=== PATIENT | female | born 1945 | race Caucasian/White ===

== ENCOUNTER 2022-10-22 07:53 | Day surgery (SDC) | payer MEDICARE, OTHER, SELFPAY ==
[2022-10-17 11:04] VITALS: BMI 28.5
--- NOTE | 2022-10-19 08:03 | MHC.SHP ---
Pre-Procedural Eval Section A Date of Service: 10/19/22 The patient is an INPATIENT: No Changes since office visit: No Cold of Flu in the past 2 weeks, No New Medical Problems, No Changes in Medication and No Patient answered all questions The History & Physical has been completed within 30 days and I have reviewed it.: Yes Section B Chief Complaint: Age-related nuclear cataract, right eye Allergies: Allergies Allergy/AdvReac Type Severity Reaction Status Date / Time No Known Allergies Allergy Verified 10/17/22 11:07 [No Known Allergies*] Plan Diagnosis/Plan: Unchanged I have reviewed the history and physical and performed a pertinent physical examination on my patient. No changes have occurred unless specified. Time Spent With Patient Time: Total time managing care of this patient today ____ minutes.
--- NOTE | 2022-10-19 09:08 | P.CONAN_ITS ---
Documented by User: Birdie Bauman NP 10/19/22 09:09 HPI - Anesthesia Eval Consult details Narrative: 77yo F for Right Cataract Multifocal with IOL Insertion PCP cleared No previous cataract on record PMFSH Past Medical History Medical History Anxiety Depression HTN (hypertension) Hx of breast cancer Hx of skin cancer, basal cell Insomnia Osteopenia of lumbar spine Ventral hernia Surgical History Surgical History History of lumpectomy of right breast Hx of colonoscopy S/P Mohs surgery for basal cell carcinoma Social History Social History Are you a primary youth career specialist to a significant other at home: No Do you presently have visiting nurse or other home services: No Patient Tobacco Use Status: Never used Tobacco Use of substances other than those prescribed or required for medical reasons: No Have you been hit, kicked, punched, or otherwise hurt by someone within the past year? If so, by whom?: No Are you DNR?: No Advance Directives: No Advance Directives Information Provided: Yes Advance Directives on File: No Recently lost weight without trying: No Nutrition Risks: Surgical patient >75years Meds Allergies Allergy/AdvReac Type Severity Reaction Status Date / Time No Known Allergies Allergy Verified 10/17/22 11:07 [No Known Allergies*] Home Medications Medication Instructions Recorded Confirmed Last Taken Type calcium carbonate 500 mg calcium 500 mg PO DAILY 10/17/22 10/17/22 Unknown History (1,250 mg) tablet fluoxetine 10 mg capsule 10 mg PO DAILY 10/17/22 10/17/22 10/22/22 History lorazepam 0.5 mg tablet 0.5 mg PO Q8H PRN Anxiety 10/17/22 10/17/22 10/22/22 Hi story losartan 25 mg tablet 25 mg PO DAILY 10/17/22 10/17/22 Unknown History multivitamin 1 tab PO DAILY 10/17/22 10/17/22 Unknown History Exam Exam Date and Time: October 19, 2022 0908 Height,Weight and Vital Signs: Height 5 ft 5.5 in Weight 78.925 kg Assessment and Plan Assessment Anesthesia Assessment: Chart Reviewed Documented by User: Susie Cool MD 10/22/22 09:58 PMFSH Past Medical History Medical History Anxiety Depression HTN (hypertension) Hx of breast cancer Hx of skin cancer, basal cell Insomnia Osteopenia of lumbar spine Ventral hernia Family History Family history of problems with anesthesia: No Surgical History Surgical History History of lumpectomy of right breast Hx of colonoscopy S/P Mohs surgery for basal cell carcinoma History of Problems with Anesthesia: No Social History Social History Are you a primary youth career specialist to a significant other at home: No Do you presently have visiting nurse or other home services: No Patient Tobacco Use Status: Never used Tobacco Use of substances other than those prescribed or required for medical reasons: No Have you been hit, kicked, punched, or otherwise hurt by someone within the past year? If so, by whom?: No Are you DNR?: No Advance Directives: No Advance Directives Information Provided: Yes Advance Directives on File: No Recently lost weight without trying: No Nutrition Risks: Surgical patient >75years Meds Allergies Allergy/AdvReac Type Severity Reaction Status Date / Time No Known Allergies Allergy Verified 10/17/22 11:07 [No Known Allergies*] Home Medications Medication Instructions Recorded Confirmed Last Taken Type calcium carbonate 500 mg calcium 500 mg PO DAILY 10/17/22 10/17/22 Unknown History (1,250 mg) tablet fluoxetine 10 mg capsule 10 mg PO DAILY 10/17/22 10/17/22 10/22/22 History lorazepam 0.5 mg tablet 0.5 mg PO Q8H PRN Anxiety 10/17/22 10/17/22 10/22/22 History losartan 25 mg tablet 25 mg PO DAILY 10/17/22 10/17/22 Unknown History multivitamin 1 tab PO DAILY 10/17/22 10/17/22 Unknown History Exam Height,Weight and Vital Signs: Height 5 ft 5.5 in Weight 78.925 kg Vital Signs Temp Pulse Resp BP Pulse Ox O2 Del Method 10/22/22 08:46 97.7 F 81 18 172/84 H 97 Room Air Assessment and Plan Final Anesthetic Review Family History of Problems with Anesthesia: No History of Problems with Anesthesia: No Documented by User: Armani Tyson MD 10/22/22 10:59 PMFSH Past Medical History Medical History Anxiety Depression HTN (hypertension) Hx of breast cancer Hx of skin cancer, basal cell Insomnia Osteopenia of lumbar spine Ventral hernia Surgical History Surgical History History of lumpectomy of right breast Hx of colonoscopy S/P Mohs surgery for basal cell carcinoma Social History Social History Are you a primary youth career specialist to a significant other at home: No Do you presently have visiting nurse or other home services: No Patient Tobacco Use Status: Never used Tobacco Use of substances other than those prescribed or required for medical reasons: No Have you been hit, kicked, punched, or otherwise hurt by someone within the past year? If so, by whom?: No Are you DNR?: No Advance Directives: No Advance Directives Information Provided: Yes Advance Directives on File: No Recently lost weight without trying: No Nutrition Risks: Surgical patient >75years Meds Allergies Allergy/AdvReac Type Severity Reaction Status Date / Time No Known Allergies Allergy Verified 10/17/22 11:07 [No Known Allergies*] Home Medications Medication Instructions Recorded Confirmed Last Taken Type calcium carbonate 500 mg calcium 500 mg PO DAILY 10/17/22 10/17/22 Unknown History (1,250 mg) tablet fluoxetine 10 mg capsule 10 mg PO DAILY 10/17/22 10/17/22 10/22/22 History lorazepam 0.5 mg tablet 0.5 mg PO Q8H PRN Anxiety 10/17/22 10/17/22 10/22/22 History losartan 25 mg tablet 25 mg PO DAILY 10/17/22 10/17/22 Unknown History multivitamin 1 tab PO DAILY 10/17/22 10/17/22 Unknown History Exam Airway Mallampati Class: II TM Dist: >3cm Neck ROM: Full Loose/Missing/Broken Teeth: Yes Heart: [id number] Lungs: CTA b/l Assessment and Plan Assessment Anesthesia Assessment: Anesthesia Plan Discussed Final Anesthetic Review NPO: Yes ASA Class: II Final Preanesthetic Review: No Changes in Pt Med Stat, Meds/Allgs Chart Reviewed, Consent Obtained/Reviewed and Anes Risks/Benef Reviewed Patient Risk: Low Procedure Risk: Low Assessment/Block/Sedation in SS: Assess/Block/Sedation-SS Anesthetic Plan Anesthetic Plan: MAC: and Agree w/ Assess. and Plan Disposition: Standard PACU
[2022-10-22 08:46] VITALS: BP 172/84; PULSE 81; RESP 18; TEMP 36.5; O2SAT 97
[2022-10-22] MEDS: Lactated Ringers 500 ML 50 ML IV (09:10)
[2022-10-22] MEDS: Tetracaine HCl/PF 0.5% Oph Sol 4 ML DROPS 1 DROP EYE-RIGHT (09:10)
[2022-10-22] MEDS: Ketorolac Tromethamine 0.5% Op 5 ML DROPS 1 DROP EYE-RIGHT ×3 (09:11→09:18)
[2022-10-22] MEDS: Cyclopentolate 1 % Ophth Sol 2 ML DRPBTL 1 DROP EYE-RIGHT ×3 (09:11→09:17)
[2022-10-22] MEDS: Phenylephrine HCL 2.5% Oph SoL 2 ML BOTTLE 1 DROP EYE-RIGHT ×3 (09:11→09:18)
[2022-10-22] MEDS: Tropicamide 1 % Ophth Sol 3 ML BTL 1 DROP EYE-RIGHT ×3 (09:11→09:17)
--- NOTE | 2022-10-22 09:54 | P.PCNO_ITS ---
Ophthalmology Procedure Procedure Date of Service: 10/22/22 Ophthalmology Viscoelastic: Emelyn Wrightt Dual Pack Pro Ophthalmology Lenses: TECSOPHIE [id number] (19.5) Procedure Notes: PREOPERATIVE DIAGNOSIS: Decreased visual acuity right eye secondary to cataract POSTOPERATIVE DIAGNOSIS: Same PROCEDURE: Right cataract extraction with intraocular lens insertion SURGEON: Joe Kenny M.D. ANESTHESIA: Topical/MAC ESTIMATED BLOOD LOSS: None COMPLICATIONS: Capsular tear After obtaining informed consent, the patient was brought to the operating room suite and placed in the supine position. After adequate sedation per anesthesia, topical drops of Tetracaine were given to the right eye. The eye was then prepped and draped in the usual sterile fashion. The operating room microscope was then positioned over the operative eye and a lid speculum placed. A paracentesis was created. Viscoelastic was then instilled into the anterior chamber. A three plane incision was then created temporally, utilizing a 2.85 mm keratome. Capsulotomy forceps were then utilized to create a circular tear capsulotomy. Hydrodissection and hydrodelineation were carried out until adequate mobilization of the nucleus occurred. Phacoemulsification was then utilized to remove the dense central nuc leus followed by removal of the cortical material utilizing the automated aspiration irrigation unit. Viscoelastic was instilled into the posterior capsular bag followed by placement of a posterior chamber intraocular lens . The lens was not situating centrally. A capsular tear required the PCIOL to be positioned in the sulcus with Optic capture. The residual Viscoelastic was then removed utilizing the automated IA machine. The wound was checked and found to be watertight. The patient tolerated the procedure well and the lid speculum was removed. Intracameral injection of Vigamox 0.1 mL followed by a subtenon injection of Kenalog-40 0.2 mL were administered. The patient will be seen in the a.m.
[2022-10-22 10:20] VITALS: BP 165/78; PULSE 72; RESP 20; TEMP 36.3; O2SAT 98
== END 2022-10-22 10:33 | disposition home or self-care (01) ==
PROVIDERS: PCP Internal Medicine; Visit Provider Ophthalmology
PROC: (CPT 66985; principal; 2022-10-22 10:50)
DX: H25.11 Age-related nuclear cataract, right eye (principal); H59.211 Accidental puncture and laceration of right eye and adnexa during an ophthalmic procedure; Y65.8 Other specified misadventures during surgical and medical care; Y92.234 Operating room of hospital as the place of occurrence of the external cause; H52.4 Presbyopia; H35.033 Hypertensive retinopathy, bilateral; H18.413 Arcus senilis, bilateral; H11.153 Pinguecula, bilateral; I10 Essential (primary) hypertension; Z85.3 Personal history of malignant neoplasm of breast; Z85.828 Personal history of other malignant neoplasm of skin; F41.1 Generalized anxiety disorder; F32.A Depression, unspecified; Z79.899 Other long term (current) drug therapy
CPT/HCPCS: 66984; J2250; J3301; V2632

== ENCOUNTER 2022-11-05 07:34 | Day surgery (SDC) | payer MEDICARE, OTHER, SELFPAY ==
[2022-10-17 11:08] VITALS: BMI 28.5
--- NOTE | 2022-11-01 14:52 | HO.ANESPROP2 ---
Documented by User: Birdie Bauman NP 11/01/22 14:52 HPI - Anesthesia Eval Consult details Narrative: 77yo F for Left Cataract Multifocal with IOL Insertion PCP cleared Right eye 10/22/22 with MAC: midaz 1 PMFSH Past Medical History Medical History Anxiety Depression HTN (hypertension) Hx of breast cancer Hx of skin cancer, basal cell Insomnia Osteopenia of lumbar spine Ventral hernia Family History Family history of problems with anesthesia: No Surgical History Surgical History History of lumpectomy of right breast Hx of colonoscopy S/P Mohs surgery for basal cell carcinoma History of Problems with Anesthesia: No Social History Social History Are you a primary child care development specialist to a significant other at home: No Do you presently have visiting nurse or other home services: No Patient Tobacco Use Status: Never used Tobacco Use of substances other than those prescribed or required for medical reasons: No Have you been hit, kicked, punched, or otherwise hurt by someone within the past year? If so, by whom?: No Are you DNR?: No Advance Directives: No Advance Directives Information Provided: Yes Recently lost weight without trying: No Nutrition Risks: Surgical patient >75years Meds Allergies Allergy/AdvReac Type Severity Reaction Status Date / Time No Known Allergies Allergy Verified 11/05/22 08:16 [No Known Allergies*] Home Medications Medication Instructions Recorded Confirmed Last Taken Type calcium carbonate 500 mg calcium 500 mg PO DAILY 10/17/22 11/05/22 Unknown History (1,250 mg) tablet fluoxetine 10 mg capsule 10 mg PO DAILY 10/17/22 11/05/22 11/05/22 History lorazepam 0.5 mg tablet 0.5 mg PO Q8H PRN Anxiety 10/17/22 11/05/22 11/05/22 History losartan 25 mg tablet 25 mg PO DAILY 10/17/22 11/05/22 Unknown History multivitamin 1 tab PO DAILY 10/17/22 11/05/22 Unknown History Exam Exam Date and Time: November 01, 2022 1452 Height,Weight and Vital Signs: Height 5 ft 5.5 in Weight 78.925 kg Assessment and Plan Assessment Anesthesia Assessment: Chart Reviewed Final Anesthetic Review Family History of Problems with Anesthesia: No History of Problems with Anesthesia: No Documented by User: Jamie Cohn MD 11/05/22 08:27 PMFSH Past Medical History Medical History Anxiety Depression HTN (hypertension) Hx of breast cancer Hx of skin cancer, basal cell Insomnia Osteopenia of lumbar spine Ventral hernia Surgical History Surgical History History of lumpectomy of right breast Hx of colonoscopy S/P Mohs surgery for basal cell carcinoma Social History Social History Are you a primary child care development specialist to a significant other at home: No Do you presently have visiting nurse or other home services: No Patient Tobacco Use Status: Never used Tobacco Use of substances other than those prescribed or required for medical reasons: No Have you been hit, kicked, punched, or otherwise hurt by someone within the past year? If so, by whom?: No Are you DNR?: No Advance Directives: No Advance Directives Information Provided: Yes Recently lost weight without trying: No Nutrition Risks: Surgical patient >75years Meds Allergies Allergy/AdvReac Type Severity Reaction Status Date / Time No Known Allergies Allergy Verified 11/05/22 08:16 [No Known Allergies*] Home Medications Medication Instructions Recorded Confirmed Last Taken Type calcium carbonate 500 mg calcium 500 mg PO DAILY 10/17/22 11/05/22 Unknown History (1,250 mg) tablet fluoxetine 10 mg capsule 10 mg PO DAILY 10/17/22 11/05/22 11/05/22 History lorazepam 0.5 mg tablet 0.5 mg PO Q8H PRN Anxiety 10/17/22 11/05/22 11/05/22 History losartan 25 mg tablet 25 mg PO DAILY 10/17/22 11/05/22 Unknown History multivitamin 1 tab PO DAILY 10/17/22 11/05/22 Unknown History Exam Airway Mallampati Class: II TM Dist: >3cm Neck ROM: Full Assessment and Plan Assessment Anesthesia Assessment: Anesthesia Plan Discussed Final Anesthetic Review NPO: Yes ASA Class: II Final Preanesthetic Review: No Changes in Pt Med Stat, Meds/Allgs Chart Reviewed, Consent Obtained/Reviewed and Anes Risks/Benef Reviewed Patient Risk: Low Procedure Risk: Low Anesthetic Plan Anesthetic Plan: MAC: Disposition: Standard PACU
--- NOTE | 2022-11-02 08:33 | MHC.SHP ---
Pre-Procedural Eval Section A Date of Service: 11/02/22 The patient is an INPATIENT: No Changes since office visit: No Cold of Flu in the past 2 weeks, No New Medical Problems, No Changes in Medication and No Patient answered all questions The History & Physical has been completed within 30 days and I have reviewed it.: Yes Section B Chief Complaint: Age-related nuclear cataract, left eye Allergies: Allergies Allergy/AdvReac Type Severity Reaction Status Date / Time No Known Allergies Allergy Verified 10/17/22 11:07 [No Known Allergies*] Plan Diagnosis/Plan: Unchanged I have reviewed the history and physical and performed a pertinent physical examination on my patient. No changes have occurred unless specified. Time Spent With Patient Time: Total time managing care of this patient today ____ minutes.
[2022-11-05] MEDS: Tetracaine HCl/PF 0.5% Oph Sol 4 ML DROPS 1 DROP EYE-LEFT (08:15)
[2022-11-05] MEDS: Cyclopentolate 1 % Ophth Sol 2 ML DRPBTL 1 DROP EYE-LEFT ×3 (08:16→08:32)
[2022-11-05] MEDS: Tropicamide 1 % Ophth Sol 3 ML BTL 1 DROP EYE-LEFT ×3 (08:18→08:34)
[2022-11-05] MEDS: Ketorolac Tromethamine 0.5% Op 5 ML DROPS 1 DROP EYE-LEFT ×3 (08:20→08:36)
[2022-11-05] MEDS: Phenylephrine HCL 2.5% Oph SoL 2 ML BOTTLE 1 DROP EYE-LEFT ×3 (08:22→08:30)
[2022-11-05 08:26] VITALS: BP 145/58; PULSE 77; RESP 16; TEMP 36.5; O2SAT 97
[2022-11-05] MEDS: Lactated Ringers 500 ML 50 ML IV (08:27)
--- NOTE | 2022-11-05 09:20 | HO.PNOPHT ---
Ophthalmology Procedure Procedure Date of Service: 11/05/22 Ophthalmology Viscoelastic: Healnila Duet Dual Pack Pro Ophthalmology Lenses: TECSOPHIE [id number] (20) Procedure Notes: PREOPERATIVE DIAGNOSIS: Decreased visual acuity left eye secondary to cataract POSTOPERATIVE DIAGNOSIS: Same PROCEDURE: Left cataract extraction with intraocular lens insertion SURGEON: Joe Kenny M.D. ANESTHESIA: Topical/MAC ESTIMATED BLOOD LOSS: None COMPLICATIONS: None After obtaining informed consent, the patient was brought to the operation room suite and placed in the supine position. After adequate sedation per anesthesia, topical drops of Tetracaine were given to the left eye. The eye was then prepped and draped in the usual sterile fashion. The operating room microscope was then positioned over the operative eye and a lid speculum placed. A paracentesis was created. Viscoelastic was then instilled into the anterior chamber. A three plane incision was then created temporally, utilizing a 2.85 mm keratome. Capsulotomy forceps were then utilized to create a circular tear capsulotomy. Hydrodissection and hydrodelineation were carried out until adequate mobilization of the nucleus occurred. Phacoemulsification was then utilized to remove the dense central nucleus followed by removal of the cortical material utilizing the automated aspiration irrigation unit. Viscoat elastic was instilled into the posterior capsular bag followed by placement of a posterior chamber intraocular lens without difficulty. The residual Viscoat elastic was then removed utilizing the automated IA machine. The wound was check and found to be watertight. The patient tolerated the procedure well and the lid speculum was removed. Intracameral injection of Vigamox 0.1 mL followed by a subtenon injection of Kenalog-40 0.2 mL were administered. The patient will be seen in the a.m.
[2022-11-05 09:44] VITALS: BP 156/68; PULSE 65; RESP 16; TEMP 36.2; O2SAT 100
== END 2022-11-05 10:01 | disposition home or self-care (01) ==
PROVIDERS: PCP Internal Medicine; Visit Provider Ophthalmology
PROC: (CPT 66985; principal; 2022-11-05 09:40)
DX: H25.12 Age-related nuclear cataract, left eye (principal); H52.4 Presbyopia; H35.033 Hypertensive retinopathy, bilateral; H18.413 Arcus senilis, bilateral; H11.153 Pinguecula, bilateral; H43.399 Other vitreous opacities, unspecified eye; I10 Essential (primary) hypertension; Z85.828 Personal history of other malignant neoplasm of skin; Z85.3 Personal history of malignant neoplasm of breast; Z79.899 Other long term (current) drug therapy
CPT/HCPCS: 66984; J2250; J3301; V2632